=== PATIENT | female | born 1975 | race Caucasian/White ===

== ENCOUNTER → 2023-12-13 12:30 | Outpatient (REF) | payer SELFPAY | LOC: RAD 12:30 | PROVIDERS: ATTENDING PHYSICIAN Physician Assistant | DX: E78.2 Mixed hyperlipidemia (principal) | CPT/HCPCS: 75571 ==

== ENCOUNTER → 2024-02-23 11:15 | Outpatient (REF) | payer OTHER, SELFPAY ==
[2024-02-23 16:22] LABS: Erythrocyte Sed Rate 39 mm/hour (0-20)
[2024-02-23 17:30] LABS: Protein/creatinine Ratio 0.2; Urine Protein 15 mg/dl
[2024-02-23 17:39] LABS: Vitamin D, 25-OH*** 43.5 ng/mL (30-80)
[2024-02-23 17:39] LABS: Complement C3 152 mg/dl (88-165)
[2024-02-23 18:28] LABS: Folate > 20.0 ng/ml (2.76-20); Vitamin B12 > 1000 pg/ml (239-931)
[2024-02-25 09:55] LABS: Thyroid Peroxidase Ab (TPO) 0.3 IU/mL (0.0-9.0)
[2024-02-25 18:52] LABS: CCP Antibody IgG/IgA 6 Units (0-19)
== END ==
LOC: HWRAD 11:15
PROVIDERS: ATTENDING PHYSICIAN Physician Assistant; FAMILY PHYSICIAN Family Medicine
DX: E07.9 Disorder of thyroid, unspecified (principal); E55.9 Vitamin D deficiency, unspecified; K90.0 Celiac disease; L65.9 Nonscarring hair loss, unspecified; M06.4 Inflammatory polyarthropathy; M25.50 Pain in unspecified joint; M25.572 Pain in left ankle and joints of left foot; M53.82 Other specified dorsopathies, cervical region; R76.8 Other specified abnormal immunological findings in serum
CPT/HCPCS: 36415; 73610; 82306; 82570; 82607; 82746; 84156; 85652; 86140; 86160; 86200; 86376; 86430

== ENCOUNTER 2024-03-05 20:41 | Emergency (ER) | payer OTHER, SELFPAY ==
[2024-03-05] VITALS (12 sets, daily range): BP systolic 107–137; BP diastolic 59–93; BMI 28.8
--- NOTE | 2024-03-05 21:50 | ED.GENMED ---
History of Present Illness
General
Chief Complaint: Chest Pain
Source: patient
Exam Limitations: none
Time Seen by Provider: 03/05/24 21:31
History of Present Illness
History of Present Illness:
This is a 48 year old female that comes in with c/o chest pain. State that today they were walking around at the car show and around 3pm she told her that she had chest pain and Trouble breathing. States that her chest pain has continued
and goes under her arm, down the left arm and into the left side of the neck. States that it has been constant. States that she feels like she has to take a deep breath and that she has been lightheaded. Denies any fever, chills, abd pain, nausea,
vomiting, diarrhea, headache, urinary burning.
Past History
Past History
ED Past Medical History: Asthma, Hypothyroidism, Psychiatric (Anxiety, Panic attack, ) and Other (Migraines, PNA, Endometriosis. Iron Def anemia. )
ED Past Surgical History: Gynecological (Tubal)
Social History
Tobacco: Non-smoker
Alcohol: None
Drug: None
Personal:
Living: with family
Review of Systems
Review of Systems
All Other Systems: ROS reviewed and negative except as documented in HPI and ROS
Constitutional: Reports no symptoms; Denies fever or chills
EENT: Reports no symptoms
Respiratory: Reports trouble breathing; Denies cough
Cardiac: Reports chest pain
ABD/GI: Reports no symptoms; Denies abdominal pain, nausea, vomiting or diarrhea
: Reports no symptoms; Denies dysuria, frequency or urgency
Musculoskeletal: Reports no symptoms
Skin: Reports no symptoms
Neurological: Reports other (Lightheaded); Denies dizzy or headache
Psychiatric: Reports no symptoms
Phy Exam
General Physical Exam
General Presentation: well appearing and no apparent distress
General age: appears stated age
General Skin: warm and dry
General Habitus: normal
General Mental: alert
General Hydration: appears well hydrated
ENT Exam
ENT Exam: TM's normal, pharynx normal and neck supple
Eye Exam
Eye Exam: EOMI
Cardiovascular Exam
Cardiovascular Exam: regular rate/rhythm, no edema, normal peripheral pulses and other (Slight Murmur)
Pulmonary Exam
Pulmonary Exam: lungs clear, no respiratory distress, no rales, chest non tender, no crackles, no rhonchi, no wheezing and no cough
Gastrointestinal Exam
Gastrointestinal Exam: normal bowel sounds, non tender, soft, no organomegaly, no pulsatile mass and non distended
Musculoskeletal Exam
Musculoskeletal Exam: full ROM and no edema
Skin Exam
Skin Exam: normal color, warm/dry, no rash and no petechia
Psychiatric Exam
Psychiatric Exam: normal mood/affect
Scores
Heart Score for Chest Pain Patients
STEMI patient?: No
History: Slightly or Non-Suspicious
ECG: Normal
Age: >45 - <65 years
Risk Factors: No Risk Factors
Troponin: </= Normal Limit
Heart Score for Chest Pain Patients: 1
Heart Score Risk: 2.5% MACE over next 6 weeks
Course
Orders/Labs/Results
Orders:
Orders
03/05/24 20:45
Electrocardiogram (*1) Urgent
Reason for Study: Chest Pain
EKG- Treatment ONCE
03/05/24 21:29
Cardiac Monitoring- Treatment ONCE
IV Insert/Care/Rem.- Treatment PRN
CR Chest - 2 Views Urgent
Comment:
Reason For Exam: respiratory distress
O2 Therapy [RESP] Urgent
Titrate/Wean O2 to maintain O2 sat greater than (%): 93
Special Instructions: TO MAINTAIN CONTINUOUS O2 SATS >/= 93%
Pulse Ox/cont/shift [RESP] Urgent
Quantity: 1
Special Instructions: continuous pulse ox
03/05/24 21:45
Complete Blood Count/With Diff Urgent
Comprehensive Metabolic Panel Urgent
NT-proBNP Urgent
Troponin I Urgent
03/05/24 21:50
Aspirin 325 mg PO NOW STA
Nitroglycerin Sublingual [Nitrostat (Sublingual)] 0.4 mg SL NOW STA
03/05/24 22:13
D-Dimer Urgent
03/05/24 22:32
Nitroglycerin Sublingual [Nitrostat (Sublingual)] 0.4 mg SL [id number] PRN
03/05/24 23:10
EKG- Treatment ONCE
03/06/24 00:45
Electrocardiogram (*1) Urgent
Reason for Study: Chest Pain
Other Reason for Exam: Repeat with Troponin
03/06/24 00:52
Troponin I Urgent
03/06/24 01:52
Ketorolac [Toradol] 30 mg IV NOW STA
Abnormal Lab Results
03/05/24
21:45
RBC 4.00 L 10^6/uL
(4.20-5.40)
Hgb 11.5 L g/dL
(12.0-16.0)
Hct 31.9 L %
(37.0-47.0)
MCV 79.8 L fL
(81.0-99.0)
AST 88 H U/L
(14-36)
ALT 110 H U/L
(0-35)
03/05/24 21:45
03/05/24 21:45
H/H slightly low. AST/ALT elevation. D-dimer 0.33, Troponin <0.012, Pro-BNP 40.3
Vital Signs
Initial and Last Documented VS:
Initial Vital Signs
Temp Pulse Resp BP Pulse Ox
98.2 F 89 16 137/93 96
03/05/24 20:45 03/05/24 20:45 03/05/24 20:45 03/05/24 20:45 03/05/24 20:45
Last Documented Vital Signs
Temp Pulse Resp BP Pulse Ox
98.2 F 72 18 121/69 95
03/05/24 20:45 03/05/24 22:00 03/05/24 22:00 03/05/24 22:47 03/05/24 22:00
Body Rolling Machine Tender consulted with Physician
Body Rolling Machine Tender consulted with physician?: Yes
Name of Physician Consulted: Dr. Ying
MDM/Problems Addressed
Differential Diagnosis Includes:
PE, coronary syndrome,
MDM/Problems Addressed:
This is a 48 year old female that comes in with c/o chest pain. States that this started around 3pm and goes under her left arm, down the left arm and into her neck. States that this has been constant.
Will get labs, chest x-ray and give Aspirin and Nitro
Repeat ECG: ratge 68, NSR, Normal axis. Normal QRS, Negative for ischemia
Back into see patient. Patient states that she is feeling better, but still has some residual discomfort. Explained that her Chest x-ray was normal along with both Troponin and D-dimer. Will place patient on the Cardiology hot line for further
evaluation. Patient to return with increased or changing pain.
Chronic conditions affecting care:
NA
Acute Exacerbation and/or Progression of Chronic Illness:
NA
*Radiology
Radiology exam reviewed: radiology read reviewed (Chest- No evidence of active cardiopulmonary disease. )
*Pulse Oximetry
Patient hypoxic: no
*EKG
Interpreted by ED Provider?: Yes
Heart Rate: 72
Rate: normal
Rhythm: sinus
[place]: normal axis
Interval: normal interval
QRS Pattern: normal QRS
Ischemia: non-specific ST changes (I, II, aVL, V4, V5, V6)
*Leach Tank Tender Interpretation
Rate: normal
Heart Rate: 74
Rhythm: sinus
*Critical Care Note
Total Time (30-74mins, 75-104mins- exclusive of procedures): Not Applicable
ED Attending Note
-
Portions of this chart may have been created with voice recognition software.� Occasional wrong word or��sound alike� substitutions may have occurred due to the inherent limitations of voice recognition software.
Discharge Plan
Departure
Patient Disposition: Home (Routine Discharge)
Date of Disposition: 03/06/24
Time of Disposition: 02:01
Patient with high blood pressure during this ER visit?: No
Condition: Good
Covid-19: Not Applicable
Discharge Problem:
Chest pain
Instructions: Chest Pain DCA Follow Up
Prescriptions:
No Action
levothyroxine [Synthroid] 25 mcg Tablet
25 mcg PO DAILY
ibuprofen 200 mg Tablet
400 mg PO Q6HPRN PRN (Reason: mild pain)
diphenhydramine HCl [Benadryl] 25 mg Capsule
25 mg PO PRN PRN (Reason: sleep )
magnesium 500 mg Tablet
15 mg PO DAILY
cholecalciferol (vitamin D3) [Vitamin D3] 25 mcg (1,000 unit) Capsule
25 mcg PO DAILY
Veozah 45 mg Tablet
45 mg PO DAILY
Referrals:
Feliciano Liriano DO [Family Provider] - Call in 1-3 days for appt
Activity Restrictions/Additional Instructions:
As discussed, your blood work shows that our liver enzymes are elevated. Your Both Troponin which are specific for the heart are normal. Your D-dimer is negative and your chest x-ray is normal. You have been place on the Cardiology hot line for
further evaluation. This means that you will be called the next business day so that they can set you up to see the [facility]. IF YOU HAVE INCREASED OR CHANGING PAIN, OR YOU HAVE ANY OTHER CONCERNS PLEASE RETURN TO THE EMERGENCY ROOM.
Interventions
Interventions:
*Risk Screen - Suicide Last Done: 03/05/24 20:47
*General Assessment Last Done: 03/05/24 21:22
*Neglect/Abuse Screening Last Done: 03/05/24 20:47
ED- Fall Risk Assessment Last Done: 03/05/24 20:47
*ED COVID-19 Vaccine History Last Done: 03/05/24 20:47
ED- Cardiac Assessment Last Done: 03/05/24 21:22
Discharge Date and Time
Print Language: WELSH
[2024-03-05 21:53] LABS: % Basophils 0.9 % (0-2); % Eosinophils 4.7 % (0-6); % Immature Granulocytes 0.3 % (0-0.5); % Lymphocytes 41.5 % (20.5-51.1); % Monocytes 8.8 % (1.7-9.3); % Neutrophils 43.8 % (42.2-75.2); Absolute Basophils 0.1 10^3/uL (0-0.2); Absolute Eosinophils 0.3 10^3/uL (0-0.7); Absolute Lymphocytes 2.8 10^3/uL (1.2-3.4); Absolute Monocytes 0.6 10^3/uL (0.1-0.6); Hematocrit 31.9 % (37.0-47.0); Hemoglobin 11.5 g/dL (12.0-16.0); Mean Corp Hgb Conc. 36.1 g/dL (33.0-37.0); Mean Corpuscular Hgb 28.8 pg (27.0-31.0); Mean Corpuscular Volume 79.8 fL (81.0-99.0); Mean Platelet Volume 8.7 fL (7.4-10.4); Nucleated Red Blood Cells % 0 %; Platelet Count 241 10^3/uL (130-400); Red Cell Dist. Width 13.2 % (11.5-14.5); White Blood Cell Count 6.8 10^3/uL (4.8-10.8)
[2024-03-05] MEDS: ASPIRIN 325 MG PO (22:11)
[2024-03-05 22:14] LABS: AST (SGOT) 88 U/L (14-36); Albumin 4.2 g/dl (3.5-5.0); Blood Urea Nitrogen 15 mg/dl (7-17); Calcium 9.6 mg/dl (8.4-10.2); Carbon Dioxide 24 mmol/L (22-30); Estimated Creatinine Clearance 92 ml/min; Glucose 99 mg/dl (70-99); Potassium 3.9 mmol/L (3.5-5.1); Total Bilirubin 0.5 mg/dl (0.2-1.3); Total Protein 7.3 g/dl (6.3-8.2); eGFR > 60.00
[2024-03-05 22:18] LABS: NT-proBNP 40.3 pg/ml; Troponin I < 0.012 ng/ml
[2024-03-05 22:22] LABS: ALT (SGPT) 110 U/L (0-35); Alkaline Phosphatase 81 U/L (38-126); Chloride 107 mmol/L (98-107); Sodium 138 mmol/L (135-145)
[2024-03-05] MEDS: NITROSTAT (SUBLINGUAL) 0.4 MG SL ×3 (22:25→22:42)
[2024-03-05 22:31] LABS: D-Dimer 0.33 ug/mlFEU (0.00-0.50)
[2024-03-06] VITALS (11 sets, daily range): BP systolic 113–137; BP diastolic 58–75
[2024-03-06 01:25] LABS: Troponin I < 0.012 ng/ml
[2024-03-06] MEDS: TORADOL 30 MG IV (01:56)
== END 2024-03-06 02:30 | disposition home or self-care (01) ==
LOC: EMR 20:41
PROVIDERS: Clinical Nurse Specialist Family Health; EMERGENCY PHYSICIAN Emergency Medicine; FAMILY PHYSICIAN Family Medicine
DX: R07.89 Other chest pain (principal)
CPT/HCPCS: 99285; 96374; 71046; 80053; 83880; 84484; 85025; 85379; 93005

== ENCOUNTER 2025-04-02 10:01 | Emergency (ER) | payer BC, SELFPAY ==
[2025-04-02 10:07] VITALS: BP 141/85
[2025-04-02 10:52] VITALS: BMI 26.3
[2025-04-02 11:06] LABS: Hematocrit 39.4 % (37.0-47.0); Hemoglobin 13.9 g/dL (12.0-16.0); Mean Corp Hgb Conc. 35.3 g/dL (33.0-37.0); Mean Corpuscular Volume 84.9 fL (81.0-99.0); Nucleated Red Blood Cells % 0 %; Platelet Count 241 10^3/uL (130-400); Red Cell Dist. Width 12.8 % (11.5-14.5)
[2025-04-02 11:23] LABS: ALT (SGPT) 41 U/L (0-35); AST (SGOT) 37 U/L (14-36); Albumin 4.8 g/dl (3.5-5.0); Alkaline Phosphatase 85 U/L (38-126); Blood Urea Nitrogen 13 mg/dl (7-17); Calcium 9.6 mg/dl (8.4-10.2); Carbon Dioxide 26 mmol/L (22-30); Chloride 109 mmol/L (98-107); Estimated Creatinine Clearance 99 ml/min; Glucose 81 mg/dl (70-99); Potassium 4.5 mmol/L (3.5-5.1); Sodium 142 mmol/L (135-145); Total Protein 8.5 g/dl (6.3-8.2); eGFR > 60.00
--- NOTE | 2025-04-02 11:26 | ED.GENMED ---
History of Present Illness
General
Chief Complaint: Dental Problem
Source: patient
Exam Limitations: none
Time Seen by Provider: 04/02/25 11:13
Nursing documentation reviewed up to this point in time: agreed with
History of Present Illness
History of Present Illness:
49-year-old female with past medical history as noted presents to the ER for evaluation of right facial pain and swelling. Patient reports that she started having right facial swelling Wednesday which progressed the next day and prompted a visit to
emergency dentist (Dr. Kuo in [place]). She says that she was told she had an infection in her right lower molar and this was extracted on Wednesday. She says that she was started on an antibiotic (azithromycin) and has been taking it since.
Despite taking this antibiotic she says she has had progression of pain and swelling which prompted her to come to the ER today. She has not noted any fevers or chills. She denies any other acute complaints.
Past History
Past History
ED Past Medical History: Asthma, Hypothyroidism, Psychiatric (Anxiety, Panic attack, ) and Other (Migraines, PNA, Endometriosis. Iron Def anemia. )
ED Past Surgical History: Gynecological (Tubal)
Social History
Tobacco: Non-smoker
Alcohol: None
Drug: None
Personal:
Living: with family
Review of Systems
Review of Systems
All Other Systems: ROS reviewed and negative except as documented in HPI and ROS
Constitutional: Denies fever or chills
EENT: Reports other (Facial pain and swelling)
Respiratory: Denies trouble breathing
Cardiac: Denies chest pain
ABD/GI: Denies abdominal pain or vomiting
: Denies flank pain
Musculoskeletal: Denies neck pain or back pain
Neurological: Denies dizzy or headache
Phy Exam
Physical Exam
Physical Exam:
General: Awake, alert; no acute distress
Head: Normocephalic, atraumatic
Eyes: Conjunctiva normal, EOMI
Throat: Airway intact, handling secretions; she has swelling and tenderness along the right mandible, no erythema or warmth externally; on exam of the mouth she is status post extraction of tooth #32 with a suture in place, no intraoral swelling or
drainage noted; she does appear to have wisdom tooth remaining in place right lower jaw; she has no elevation of the tongue, midline uvula with no deviation
Neck: Trachea midline, supple without meningismus; she does have some swelling in the right submental region extending towards the right upper neck but again no erythema or warmth and no fluctuance, no crepitus
Lungs: Clear to auscultation bilaterally, no wheezing, rales, rhonchi
Heart: Regular rate and rhythm, no murmurs, gallops, or rubs
Neuro: Grossly intact
Extremities: Warm and well-perfused
Scores
Heart Failure Risk
Heart Failure Risk Score: Not Applicable
Heart Score for Chest Pain Patients
STEMI patient?: Not applicable
Withdrawal Assessment of Alcohol
Withdrawal Assessment Completed?: Not applicable
Course
Orders/Labs/Results
Orders:
Orders
04/02/25 10:57
CBC/With Diff [Complete Blood Count/With Diff] Urgent
CMP [Comprehensive Metabolic Panel] Urgent
HCG, Serum Qualitative Screen Urgent
Comment: ADDON
04/02/25 11:22
Add On- LAB Urgent
Tests Added?: HCG qual serum
CT Neck With Iv Contrast Urgent
Comment:
Reason For Exam: swelling right face and neck
04/02/25 11:23
0.9% Sodium Chloride 500 ml [Nss] 500 ml IV BOLUS
Ketorolac [Toradol] 15 mg IV NOW STA
04/02/25 12:04
Diphenhydramine [Benadryl] 50 mg IV NOW STA
Hydrocortisone Sod Succinate [Solu-Cortef] 200 mg IV NOW STA
04/02/25 15:19
Clindamycin HCl [Cleocin] 450 mg PO NOW STA
Abnormal Lab Results
04/02/25
10:57
Chloride 109 H mmol/L
(98-107)
AST 37 H U/L
(14-36)
ALT 41 H U/L
(0-35)
Total Protein 8.5 H g/dl
(6.3-8.2)
04/02/25 10:57
04/02/25 10:57
Vital Signs
Initial and Last Documented VS:
Initial Vital Signs
Temp Pulse Resp BP Pulse Ox
36.5 C 81 20 141/85 99
04/02/25 10:07 04/02/25 10:07 04/02/25 10:07 04/02/25 10:07 04/02/25 10:07
Last Documented Vital Signs
Temp Pulse Resp BP Pulse Ox
36.5 C 67 18 109/70 99
04/02/25 10:07 04/02/25 12:58 04/02/25 12:58 04/02/25 14:00 04/02/25 14:00
MDM/Problems Addressed
Differential Diagnosis Includes:
Dental abscess, osteomyelitis, postoperative swelling/hematoma, sialoadenitis, very low clinical suspicion for [place]ig's angina
MDM/Problems Addressed:
49-year-old female presents with right-sided facial pain and swelling as described above; found to have a dental infection and had an extraction of tooth #32 on Wednesday and was started on azithromycin but has had progression of symptoms. Vitals
and exam as above. Plan to send screening labs and send for a CT of the face/neck. Will treat pain. Reassess after the above. At minimum would likely broaden antibiotic coverage with clindamycin.
Labs reviewed: CBC and CMP no clinically significant abnormalities. CT of the neck shows postextraction changes and general edema but no abscess. Suspect that some of the swelling is related to recent extraction but there is likely underlying
infection as well and I think she should be broadened with antibiotic coverage as described above. Will prescribe clindamycin. At this point stable for discharge advised to follow-up with her dentist. Spoke about return precautions. We spoke
about pain control strategies. All questions answered
*Radiology
Radiology exam reviewed: radiology read reviewed
*Pulse Oximetry
SaO2: 99
Oxygen Mode of Delivery: Room air
Patient hypoxic: no (99%)
*Critical Care Note
Total Time (30-74mins, 75-104mins- exclusive of procedures): Not Applicable
Data Reviewed
Source: patient and records
ED Attending Note
-
Portions of this chart may have been created with voice recognition software.� Occasional wrong word or��sound alike� substitutions may have occurred due to the inherent limitations of voice recognition software.
Discharge Plan
Departure
Patient Disposition: Home (Routine Discharge)
Date of Disposition: 04/02/25
Time of Disposition: 15:27
Patient with high blood pressure during this ER visit?: Yes
Discharge Problem:
Pain, dental
Instructions: Dental Pain (DC)
Prescriptions:
New
clindamycin HCl [Cleocin HCl] 150 mg capsule
450 mg PO TID 10 Days Qty: 90 0RF
oxycodone 5 mg tablet
5 mg PO TID PRN (Reason: Pain) Qty: 10 0RF
No Action
levothyroxine [Synthroid] 25 mcg Tablet
25 mcg PO DAILY
ibuprofen 200 mg Tablet
400 mg PO Q6HPRN PRN (Reason: mild pain)
diphenhydramine HCl [Benadryl] 25 mg Capsule
25 mg PO PRN PRN (Reason: sleep )
magnesium 500 mg Tablet
15 mg PO DAILY
cholecalciferol (vitamin D3) [Vitamin D3] 25 mcg (1,000 unit) Capsule
25 mcg PO DAILY
Veozah 45 mg Tablet
45 mg PO DAILY
Referrals:
Feliciano Liriano DO [Family Provider, Family Practice] - Follow up in 1 week
Activity Restrictions/Additional Instructions:
You should follow-up with your dentist within the next week to be reassessed after your ER visit today. You should take antibiotic as prescribed. You should continue to take Tylenol and ibuprofen for pain control and you were prescribed oxycodone
to take for breakthrough pain as needed. If you notice your symptoms are worsening or if you develop any new symptoms that are concerning you please return to the emergency to be reassessed.
Thank you for visiting the Emergency Department at [facility].
1. Please schedule a follow up appointment as directed. Call first thing tomorrow morning to make an appointment.
2. If indicated, please take your medications as instructed and indicated on discharge paperwork.
3. If any of your symptoms do not improve, or persist, or become more severe within 6-12 hours, please return to the emergency department for further care.
4. Please return to the emergency department if you develop a headache, neck pain/stiffness, fever greater than 100.4F, chest pain, shortness of breath, persistent nausea, vomiting, slurred speech, difficulty walking, numbness/tingling, weakness,
signs of infection or any other symptoms that are worrisome to you.
Please call [phone] if you have any questions.
Interventions
Interventions:
*Risk Screen - Suicide Last Done: 04/02/25 10:07
*General Assessment Last Done: 04/02/25 10:50
*Neglect/Abuse Screening Last Done: 04/02/25 10:07
*ED- Fall Risk Assessment Last Done: 04/02/25 10:50
*ED COVID-19 Vaccine History Last Done: 04/02/25 10:50
Discharge Date and Time
Print Language: KOREAN
[2025-04-02] MEDS: NSS 500 IV (11:37)
[2025-04-02] MEDS: TORADOL 15 MG IV (11:37)
[2025-04-02 11:43] LABS: HCG, Serum Qualitative Screen Negative
[2025-04-02] MEDS: BENADRYL 50 MG IV (12:52)
[2025-04-02] MEDS: SOLU-CORTEF 200 MG IV (12:53)
[2025-04-02 12:55] VITALS: BP 125/75
[2025-04-02 12:58] VITALS: BP 125/75
[2025-04-02 13:00] VITALS: BP 126/74
[2025-04-02 14:00] VITALS: BP 109/70
[2025-04-02] MEDS: CLEOCIN 450 MG PO (15:25)
[2025-04-02 15:27] VITALS: BP 120/79
== END 2025-04-02 15:42 | disposition home or self-care (01) ==
LOC: EMR 10:01
PROVIDERS: EMERGENCY PHYSICIAN Emergency Medicine; FAMILY PHYSICIAN Family Medicine
DX: K08.89 Other specified disorders of teeth and supporting structures (principal); J45.909 Unspecified asthma, uncomplicated; E03.9 Hypothyroidism, unspecified; F41.9 Anxiety disorder, unspecified; F41.0 Panic disorder [episodic paroxysmal anxiety]
CPT/HCPCS: 99284; 96374; 96375 ×2; 96361; 70491; 80053; 84703; 85025; Q9967